=== PATIENT | male | born 1945 ===

== ENCOUNTER 2020-10-08 21:40 | Inpatient (IN) | payer SELFPAY ==
[2020-10-08 22:43] LABS: #Lymphocytes 0.8 thou/uL (1.20-3.40); #Monocytes 0.9 thou/uL (0.11-0.59); #Neutrophils 5.8 thou/uL (1.40-6.50); %Basophils 0.5 % (0.0-1.0); %Eosinophils 0.3 % (0.0-10.0); %Monocytes 11.4 % (0.0-10.0); %Neutrophils 77.7 % (42.0-75.0); Hemoglobin 13.2 g/dL (14.0-18.0); Mean Corpuscular HGB CONC 33.8 g/dL (32.0-36.0); Mean Corpuscular Hemoglobin 29.4 pg (27.0-31.0); Mean Corpuscular Volume 86.9 fL (78.0-98.0); Mean Platelet Volume 10.4 fL (7.4-10.4); Platelet Count 163 thou/uL (130-400); RBC Distribution Width 13.4 % (11.5-14.5); White Blood Cell (WBC) Count 7.5 thou/uL (4.8-10.8)
[2020-10-08 23:04] LABS: ALT (SGPT) 477 U/L (8-55); AST (SGOT) 640 U/L (5-34); Albumin 3.7 g/dL (3.4-4.8); Alkaline Phosphatase 517 U/L (40-110); Anion Gap 15 mmol/L (10-20); BUN (Urea Nitrogen) 21 mg/dL (8.4-25.7); Bilirubin, Total 2.6 mg/dL (0.2-1.2); Calc. Creatinine Clearance 0 mL/min (70-130); Calcium 8.4 mg/dL (7.8-10.44); Carbon Dioxide 23 mmol/L (23-31); Chloride 104 mmol/L (98-107); Globulin 2.7 g/dL (2.4-3.5); Glucose 136 mg/dL (83-110); Lipase 608 U/L (8-78); Potassium 4.6 mmol/L (3.5-5.1); Protein, Total 6.4 g/dL (5.8-8.1); Sodium 137 mmol/L (136-145)
[2020-10-08] MEDS ORDERED: Piperacillin/Tazobactam 4.5 GM VIAL ONE (23:15)
[2020-10-08] MEDS ORDERED: Morphine 4 MG/ML VIAL ONE (23:19)
[2020-10-08] MEDS ORDERED: Ondansetron PF 4 MG/2 ML Vial ONE (23:19)
[2020-10-09] MEDS ORDERED: Morphine 2 MG/ML VIAL SLOW IVP PRN (01:20)
[2020-10-09] MEDS: Lactated Ringer's 1,000 ML IV SCH ×7 (01:28→22:13)
[2020-10-09] MEDS ORDERED: Acetaminophen 325 MG TAB PO PRN (01:30)
[2020-10-09] MEDS ORDERED: Ondansetron ODT 4 MG TAB SL PRN (01:30)
[2020-10-09] MEDS ORDERED: Ondansetron PF 4 MG/2 ML Vial IVP PRN (01:30)
[2020-10-09 01:52] VITALS: BMI 39.2
[2020-10-09] MEDS ORDERED: Dextrose 5% in Water 1,000 ML IV PRN (03:26)
[2020-10-09] MEDS ORDERED: Dextrose 50% Abboject 50 ML SYRINGE SLOW IVP PRN (03:26)
[2020-10-09] MEDS: Piperacillin/Tazobactam 3.375 GM in Sodium Chloride 0.9% 100 ML IVPB SCH ×4 (05:32→23:47)
[2020-10-09 08:51] LABS: SARS-CoV-2 PCR by NAA Not Detected (NotDetected)
[2020-10-09 10:30] LABS: ALT (SGPT) 582 U/L (8-55); AST (SGOT) 672 U/L (5-34); Albumin 3.1 g/dL (3.4-4.8); Alkaline Phosphatase 486 U/L (40-110); Anion Gap 15 mmol/L (10-20); BUN (Urea Nitrogen) 14 mg/dL (8.4-25.7); Bilirubin, Total 3.8 mg/dL (0.2-1.2); Calc. Creatinine Clearance 101 mL/min (70-130); Calcium 8.3 mg/dL (7.8-10.44); Carbon Dioxide 19 mmol/L (23-31); Chloride 104 mmol/L (98-107); Globulin 3.4 g/dL (2.4-3.5); Glucose 134 mg/dL (83-110); Lipase 70 U/L (8-78); Potassium 4.6 mmol/L (3.5-5.1); Protein, Total 6.5 g/dL (5.8-8.1); Sodium 133 mmol/L (136-145)
[2020-10-09] MEDS ORDERED: hydrALAZINE 20 MG/ML VIAL SLOW IVP PRN (11:45)
[2020-10-09] MEDS ORDERED: Iopamidol-370 76% 500 ML 1 ML ONE (13:41)
[2020-10-09] MEDS: Lisinopril 10 MG TAB PO SCH (22:08)
[2020-10-10 05:18] LABS: #Eosinphils 0.2 thou/uL (0.0-0.7); #Lymphocytes 1.1 thou/uL (1.20-3.40); #Monocytes 0.9 thou/uL (0.11-0.59); #Neutrophils 4.8 thou/uL (1.40-6.50); %Basophils 0.6 % (0.0-1.0); %Eosinophils 2.4 % (0.0-10.0); %Lymphocytes 16.1 % (21.0-51.0); %Monocytes 12.8 % (0.0-10.0); %Neutrophils 68.1 % (42.0-75.0); Hemoglobin 12.4 g/dL (14.0-18.0); Mean Corpuscular HGB CONC 33.6 g/dL (32.0-36.0); Mean Corpuscular Hemoglobin 29.4 pg (27.0-31.0); Mean Corpuscular Volume 87.4 fL (78.0-98.0); Mean Platelet Volume 9.7 fL (7.4-10.4); Platelet Count 151 thou/uL (130-400); RBC Distribution Width 13.3 % (11.5-14.5); Red Blood Cell (RBC) Count 4.23 mill/uL (4.70-6.10); White Blood Cell (WBC) Count 7.1 thou/uL (4.8-10.8)
[2020-10-10] MEDS: Piperacillin/Tazobactam 3.375 GM in Sodium Chloride 0.9% 100 ML IVPB SCH ×3 (05:36→18:32)
[2020-10-10 05:41] LABS: ALT (SGPT) 445 U/L (8-55); AST (SGOT) 314 U/L (5-34); Albumin 3.1 g/dL (3.4-4.8); Alkaline Phosphatase 481 U/L (40-110); Anion Gap 14 mmol/L (10-20); BUN (Urea Nitrogen) 11 mg/dL (8.4-25.7); Bilirubin, Total 2.4 mg/dL (0.2-1.2); Calc. Creatinine Clearance 89 mL/min (70-130); Calcium 8.7 mg/dL (7.8-10.44); Carbon Dioxide 23 mmol/L (23-31); Chloride 107 mmol/L (98-107); Glucose 137 mg/dL (83-110); Protein, Total 6.1 g/dL (5.8-8.1); Sodium 140 mmol/L (136-145)
[2020-10-10] MEDS ORDERED: Scopolamine 1.5 mg/72 hour Patch ONE (08:57)
[2020-10-10] MEDS ORDERED: Lidocaine 1% w/Epinephrine 1:100K 20 ML VIAL ONE (09:12)
[2020-10-10] MEDS ORDERED: Bupivacaine 0.25% HCL 30 ML VIAL ONE ×2 (09:12→09:13)
[2020-10-10] MEDS ORDERED: Iothalamate Meglumine 60% 50 ML VIAL FS ONE (09:17)
[2020-10-10] MEDS ORDERED: Fentanyl 100 MCG/2 ML VIAL ONE ×2 (09:18→10:49)
[2020-10-10] MEDS ORDERED: Rocuronium Bromide 10 MG/ML (10ML VIAL) ONE (09:37)
[2020-10-10] MEDS ORDERED: Dexamethasone 20 MG/5 ML VIAL ONE (09:37)
[2020-10-10] MEDS ORDERED: ePHEDrine 50 MG/ML VIAL ONE (09:37)
[2020-10-10] MEDS ORDERED: Esmolol 100 MG/10 ML VIAL ONE (09:37)
[2020-10-10] MEDS ORDERED: Lidocaine 1% PF 5 ML VIAL ONE (09:37)
[2020-10-10] MEDS ORDERED: Glycopyrrolate 0.2 MG/ML 5 ML SYRINGE ONE (09:37)
[2020-10-10] MEDS ORDERED: PROPOFOL 200 MG/20 ML VIAL ONE (09:37)
[2020-10-10] MEDS: Lactated Ringer's 1,000 ML IV SCH ×3 (10:02→22:21)
[2020-10-10] MEDS ORDERED: Ondansetron PF 4 MG/2 ML Vial ONE (10:49)
[2020-10-10] MEDS ORDERED: Promethazine HCl 25 MG/ML VIAL ONE (10:49)
[2020-10-10] MEDS ORDERED: Promethazine HCl 25 MG/ML VIAL SLOW IVP PRN (10:54)
[2020-10-10] MEDS ORDERED: Promethazine HCl 25 MG/ML VIAL IM PRN (10:54)
[2020-10-10] MEDS ORDERED: Morphine 4 MG/ML VIAL SLOW IVP PRN (12:36)
[2020-10-10] MEDS: HYDROcodone/Acetaminophen 7.5/325 mg Tablet PO PRN (15:06)
[2020-10-10] MEDS: HumaLOG 300 UNITS/3 ML VIAL SC PRN ×2 (16:30→22:09)
[2020-10-10] MEDS: Lisinopril 10 MG TAB PO SCH (20:30)
[2020-10-11] MEDS: Piperacillin/Tazobactam 3.375 GM in Sodium Chloride 0.9% 100 ML IVPB SCH ×2 (00:28→05:26)
[2020-10-11] MEDS: HYDROcodone/Acetaminophen 7.5/325 mg Tablet PO PRN (04:42)
[2020-10-11 05:11] LABS: #Basophils 0.1 thou/uL (0.0-0.2); #Lymphocytes 0.8 thou/uL (1.20-3.40); #Neutrophils 8.4 thou/uL (1.40-6.50); %Basophils 1.3 % (0.0-1.0); %Eosinophils 0.1 % (0.0-10.0); %Lymphocytes 7.7 % (21.0-51.0); %Monocytes 9.4 % (0.0-10.0); %Neutrophils 81.5 % (42.0-75.0); Hemoglobin 12.2 g/dL (14.0-18.0); Mean Corpuscular HGB CONC 33.7 g/dL (32.0-36.0); Mean Corpuscular Hemoglobin 29.6 pg (27.0-31.0); Mean Corpuscular Volume 87.9 fL (78.0-98.0); Mean Platelet Volume 9.5 fL (7.4-10.4); Platelet Count 170 thou/uL (130-400); RBC Distribution Width 13.4 % (11.5-14.5); White Blood Cell (WBC) Count 10.3 thou/uL (4.8-10.8)
[2020-10-11 05:35] LABS: ALT (SGPT) 278 U/L (8-55); AST (SGOT) 86 U/L (5-34); Albumin 3.1 g/dL (3.4-4.8); Alkaline Phosphatase 364 U/L (40-110); Anion Gap 15 mmol/L (10-20); BUN (Urea Nitrogen) 15 mg/dL (8.4-25.7); Bilirubin, Total 1.5 mg/dL (0.2-1.2); Calc. Creatinine Clearance 82 mL/min (70-130); Calcium 8.5 mg/dL (7.8-10.44); Carbon Dioxide 23 mmol/L (23-31); Chloride 102 mmol/L (98-107); Globulin 3.2 g/dL (2.4-3.5); Glucose 242 mg/dL (83-110); Potassium 4.3 mmol/L (3.5-5.1); Protein, Total 6.3 g/dL (5.8-8.1); Sodium 136 mmol/L (136-145)
[2020-10-11] MEDS: HumaLOG 300 UNITS/3 ML VIAL SC PRN (05:56)
[2020-10-11 12:02] VITALS: BP 131/67; TEMP 98.6
== END 2020-10-11 12:10 | disposition home or self-care (01) | DRG 417 ==
LOC: ERS 21:40 → SURG A 10-09 00:44
PROVIDERS: ADMIT Student in an Organized Health Care Education/Training Program; ATTEND Family Medicine
PROC: 0FT44ZZ Resection of Gallbladder, Percutaneous Endoscopic Approach (ICD-10-PCS; principal; 2020-10-10)
PROC: BF131ZZ Fluoroscopy of Gallbladder and Bile Ducts using Low Osmolar Contrast (ICD-10-PCS; 2020-10-10)
DX: K80.00 Calculus of gallbladder with acute cholecystitis without obstruction (principal); K85.10 Biliary acute pancreatitis without necrosis or infection; Z20.822 Contact with and (suspected) exposure to COVID-19; E11.9 Type 2 diabetes mellitus without complications; I10 Essential (primary) hypertension; E78.5 Hyperlipidemia, unspecified; Z96.653 Presence of artificial knee joint, bilateral; E66.9 Obesity, unspecified; Z90.49 Acquired absence of other specified parts of digestive tract; Z79.84 Long term (current) use of oral hypoglycemic drugs; Z79.899 Other long term (current) drug therapy; Z68.39 Body mass index [BMI] 39.0-39.9, adult
CPT/HCPCS: 36415; 36416; 47532; 71045; 74177; 76705; 80053; 83690; 84484; 85025; 87040; 87635; 88304; 90471; 90732; 93005; 96365; 96375; G0009; J0360; J1100; J1815; J2270; J2405; J2543; J2550; J2704; J3010; J3490; Q9961; Q9967; S0020; U0003; U0005